=== PATIENT | male | born 1995 | race Caucasian/White ===

== ENCOUNTER → 2020-11-13 | Outpatient (CLI) | payer OTHER ==
[2020-11-13 11:58] LABS: APPEARANCE, URINE CLEAR (CLEAR); BACTERIA, URINE AUTO NEGATIVE (NEGATIVE); BILIRUBIN, URINE AUTO NEGATIVE (NEGATIVE); BLOOD, URINE BLOOD NEGATIVE (NEGATIVE); COLOR, URINE YELLOW (YELLOW); GLUCOSE, URINE (UA) AUTO NEGATIVE (NEGATIVE); KETONE, URINE AUTO NEGATIVE (NEGATIVE); LEUKOCYTE ESTERASE, URINE AUTO NEGATIVE (NEGATIVE); MUCUS, URINE SMALL (NEGATIVE); NITRITE, URINE AUTO NEGATIVE (NEGATIVE); PROTEIN, URINE AUTO NEGATIVE (NEGATIVE); RBC, URINE AUTO 1 /HPF (0-3); SPECIFIC GRAVITY URINE AUTO 1.014 (1.002-1.035); SQUAMOUS EPITHELIAL CELL UR AU 0 /HPF (0-6); UROBILINOGEN, URINE AUTO 0.2 mg/dL (0.0-2.0); WBC, URINE AUTO 1 /HPF (0-3)
[2020-11-13 12:01] LABS: BASO # 0.1 10^3/uL (0.0-0.2); BASO % 0.9 % (0.0-1.0); EOS # 0.1 10^3/uL (0.0-0.5); EOS % 0.7 % (0.0-3.0); HEMATOCRIT 44.8 % (42.0-52.0); HEMOGLOBIN 14.9 g/dl (13.5-17.5); LYMPH % 29.1 % (24.0-44.0); MEAN CORPUSCULAR HGB CONC 33.3 g/dl (32.0-36.5); MEAN CORPUSCULAR VOLUME 93.3 fl (80.0-96.0); MONO # 0.6 10^3/uL (0.0-0.8); MONO % 7.8 % (0.0-5.0); NEUTROPHILS # 4.3 10^3/uL (1.5-8.5); NEUTROPHILS % 61.2 % (36.0-66.0); PLATELET COUNT, AUTOMATED 244 10^3/uL (150-450)
[2020-11-13 12:30] LABS: ALBUMIN 4.6 GM/DL (3.2-5.2); ALT/SGPT 26 U/L (12-78); BILIRUBIN,TOTAL 0.6 MG/DL (0.2-1.0); BLOOD UREA NITROGEN 19 MG/DL (7-18); CALCIUM LEVEL 10.2 MG/DL (8.5-10.1); CARBON DIOXIDE LEVEL 31 MEQ/L (21-32); CHLORIDE LEVEL 104 MEQ/L (98-107); CREATININE FOR GFR 1.13 MG/DL (0.70-1.30); GLOMERULAR FILTRATION RATE > 60.0 (>60); GLUCOSE, FASTING 87 MG/DL (70-100); POTASSIUM SERUM 4.6 MEQ/L (3.5-5.1); SODIUM LEVEL 138 MEQ/L (136-145); TOTAL PROTEIN 7.7 GM/DL (6.4-8.2)
[2020-11-13 12:51] LABS: HEPATITIS B SURFACE ANTIGEN NEGATIVE (NEGATIVE)
[2020-11-13 13:19] LABS: HEPATITIS B CORE ANTIBODY IGM NEGATIVE (NEGATIVE); HEPATITIS C VIRUS ABY INDEX < 0.0 INDEX (<0.8)
[2020-11-13 13:21] LABS: HEPATITIS A ANTIBODY IGM NEGATIVE (NEGATIVE)
== END ==
LOC: M LAB 11:27
PROVIDERS: ATTEND Physician Assistant Medical
DX: Z02.2 Encounter for examination for admission to residential institution (principal)

== ENCOUNTER 2021-01-09 09:48 | Emergency (ER) | payer OTHER ==
[~2021-01-09] VITALS: Ht 188 cm; Wt 85.7 kg
[2021-01-09] MEDS ORDERED: IBUP-1022 PO (09:58)
--- NOTE | 2021-01-09 10:34 | REP ---
INDICATION: injury, pain. COMPARISON: None. TECHNIQUE: Right ribs four views, PA chest single-view. FINDINGS: Right ribs four views: There is no rib fracture or other rib abnormality. PA chest: There is no pneumothorax, hemothorax, pleural effusion or pleural thickening. The lung bosch are clear. Cardiac size is normal. The herb, mediastinum, and skeletal structures are unremarkable. IMPRESSION: Negative right rib series. Negative PA chest. <Electronically signed by Blayne Armendariz > 01/09/21 [id number]
[2021-01-09] MEDS ORDERED: KETOROLAC TROMETHAMINE 10 MG TAB PO ONE (11:15)
[2021-01-09] MEDS ORDERED: methocarbamoL 750 MG TAB PO ONE (11:15)
[2021-01-09] MEDS ORDERED: ACETAMINOPHEN 325 MG TAB PO ONE (11:15)
[2021-01-09] MEDS ORDERED: ROBA750T4 PO (11:38)
[2021-01-09] MEDS ORDERED: KETO10TAB PO (11:38)
[2021-01-09 11:50] VITALS: BP 134/63
== END 2021-01-09 11:55 | disposition home or self-care (01) ==
LOC: M ED 09:48
DX: S20.20XA Contusion of thorax, unspecified, initial encounter (principal); W22.8XXA Striking against or struck by other objects, initial encounter; Y92.9 Unspecified place or not applicable; Y93.89 Activity, other specified; Y99.9 Unspecified external cause status

== ENCOUNTER 2021-01-25 13:29 | Emergency (ER) | payer OTHER ==
[~2021-01-25] VITALS: Ht 188 cm; Wt 84.6 kg
[~2021-01-25 13:29] MED LIST: IBUP-1022 PO; KETO10TAB PO; ROBA750T4 PO
[2021-01-25] MEDS ORDERED: ISOVUE-370 76% 100ML VIAL As Ordered ONE (15:14)
--- NOTE | 2021-01-25 15:52 | REP ---
INDICATION: trauma. COMPARISON: None. TECHNIQUE: Axial CT images of multiple reformations. FINDINGS: No acute fracture or malalignment. Prevertebral soft tissues within normal limits. Craniovertebral junction is unremarkable. No evidence of limiting canal or foraminal stenosis. IMPRESSION: No acute findings. <Electronically signed by Jorge Cordero > 01/25/21 [id number]
--- NOTE | 2021-01-25 15:56 | REP ---
INDICATION: trauma. COMPARISON: None. TECHNIQUE: Axial CT images with multiplanar reformations FINDINGS: No acute bleed or fracture. Ventricles, cisterns and sulci within normal limits. No mass effect or midline shift. No abnormal fluid collections. Paranasal sinuses and mastoid air cells are clear. IMPRESSION: No acute findings. <Electronically signed by Jorge Cordero > 01/25/21 [id number]
--- NOTE | 2021-01-25 16:05 | REP ---
INDICATION: trauma. COMPARISON: None. TECHNIQUE: Chest CT with IV contrast. 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 There is collateral venous flow around the shoulder and right lateral chest wall. There is no pneumothorax, hemothorax or pulmonary contusion. There is no mediastinal hematoma. The thoracic aorta is unremarkable. Cardiac size is normal. There is no pericardial effusion. There is no clavicle fracture or dislocation. No scapular fracture is identified. No sternal fracture. No thoracic vertebral body fracture is identified. No rib fractures are identified. IMPRESSION: Essentially negative CT study of the chest except for collateral flow of the intravenous contrast as described. The right subclavian vein CT appears compressed and almost completely occluded but not entirely occluded. There is no fracture or dislocation of the right clavicle <Electronically signed by Blayne Armendariz > 01/25/21 [id number]
[2021-01-25 16:45] VITALS: BP 146/63
--- NOTE | 2021-01-25 16:47 | REP ---
INDICATION: trauma. COMPARISON: None. TECHNIQUE: CT abdomen and pelvis with IV contrast, without bowel contrast, performed contiguously with the chest CT this same date. FINDINGS: The visualized lower lung bosch are unremarkable. The hepatic parenchyma is homogeneous. There is no hepatic hematoma or laceration. The gallbladder, pancreas and spleen are unremarkable. The adrenals and kidneys are unremarkable. No evidence of renal contusion or perirenal hematoma. The abdominal aorta is unremarkable. There is no periaortic hematoma The bowel and mesentery are unremarkable. There is no pneumoperitoneum or hemoperitoneum. Pelvis: There is no free fluid in the pelvis. The bladder is unremarkable. No adenopathy or ascites. There are no lumbar, sacral, pelvic or hip fractures. IMPRESSION: There is no hemoperitoneum or pneumoperitoneum. There is no solid organ injury. No fractures are identified. Essentially negative abdomen/pelvis CT. <Electronically signed by Blayne Armendariz > 01/25/21 [id number]
--- NOTE | 2021-01-27 17:54 | ED PDOC ---
Post-Departure Follow-Up ct chest faxed to [email or web address] for fu Jessica Earl MD Jan 27, 2021 17:54
== END 2021-01-25 17:06 | disposition home or self-care (01) ==
LOC: M ED 13:29
DX: S09.90XA Unspecified injury of head, initial encounter (principal); S19.9XXA Unspecified injury of neck, initial encounter; T14.8XXA Other injury of unspecified body region, initial encounter; V48.5XXA Car driver injured in noncollision transport accident in traffic accident, initial encounter; Y92.9 Unspecified place or not applicable; Y93.9 Activity, unspecified; Y99.9 Unspecified external cause status; Z88.0 Allergy status to penicillin
CPT/HCPCS: 70450; 71260; 72125; 74177; 80047; 99284; Q9967

== ENCOUNTER 2021-05-19 14:38 | Outpatient (RCR) | payer OTHER | END 2021-05-22 | LOC: M PT 14:38 | PROVIDERS: ATTEND Physician Assistant Surgical | DX: M25.512 Pain in left shoulder (principal) ==

== ENCOUNTER 2021-06-03 15:15 | Outpatient (RCR) | payer OTHER | END 2021-06-22 | LOC: M PT 15:15 | PROVIDERS: ATTEND Physician Assistant Surgical | DX: M25.512 Pain in left shoulder (principal) ==